=== PATIENT | female | born 1960 | race African-American/Black ===

== ENCOUNTER → 2018-06-25 | Outpatient (CLI) | payer MEDICARE ==
[~2018-06-25] MED LIST: AML5T PO; HCTZ25T PO; PANT40T PO; POTA1TAB61 PO
[2018-06-25 09:03] LABS: Basophils # (auto) 0.1 uL; Basophils % (auto) 1.4 % (0.0-2.0); Eosinophils # (auto) 0.2 uL; Eosinophils % (auto) 2.9 % (0.0-7.0); Hematocrit 35.3 % (36.0-46.0); Hemoglobin 11.5 g/dL (12.2-16.2); Lymphocytes # (auto) 3.2 uL; Lymphocytes % (auto) 52.3 % (10.0-50.0); Mean Corpuscular Hemoglobin 29.6 pg (28.0-32.0); Mean Corpuscular Hgb Conc. 32.5 g/dL (32.0-36.0); Mean Corpuscular Volume 90.9 fL (80.0-100.0); Monocytes # (auto) 0.5 uL; Monocytes % (auto) 8.2 % (0.0-12.0); Neutrophils # (auto) 2.1 uL; Neutrophils % (auto) 35.2 % (37.0-80.0); Platelet Count (auto) 193 10^3/uL (140-450); Red Blood Cells 3.88 10^6/uL (4.0-5.20); Red Cell Distribution Width 16.7 % (11.8-14.3); White Blood Cell 6.1 10^3/uL (4.4-10.8)
[2018-06-25 09:27] LABS: Cholesterol 187 mg/dL (< 200); HDL Cholesterol 72 mg/dL (40-59); LDL Cholesterol 109 mg/dL (< 100); Triglycerides 46 mg/dL (< 150)
== END | disposition home or self-care (01) ==
LOC: LAB 08:31
PROVIDERS: ATTEND Internal Medicine
DX: I10 Essential (primary) hypertension (principal); E78.5 Hyperlipidemia, unspecified
CPT/HCPCS: 36415; 80061; 85025

== ENCOUNTER → 2018-08-23 | Outpatient (CLI) | payer MEDICARE | END | disposition home or self-care (01) | LOC: LAB 08:10 | PROVIDERS: ATTEND Internal Medicine Gastroenterology | DX: R10.9 Unspecified abdominal pain (principal) | CPT/HCPCS: 82274 ==

== ENCOUNTER 2018-11-30 14:03 | Emergency (ER) | payer MEDICARE ==
[~2018-11-30] VITALS: Ht 175.3 cm; Wt 71.2 kg
[2018-11-30 14:53] VITALS: BP 136/84
[2018-11-30] MEDS ORDERED: OXYMETAZOLINE HCL 0.05 % NASAL SPRAY 15ML ONE (15:15)
== END 2018-11-30 15:29 | disposition home or self-care (01) ==
LOC: ER 14:03
DX: R04.0 Epistaxis (principal); I10 Essential (primary) hypertension; Z79.899 Other long term (current) drug therapy; Z90.710 Acquired absence of both cervix and uterus

== ENCOUNTER 2020-05-23 23:22 | Emergency (ER) | payer MEDICARE ==
[~2020-05-23] VITALS: Ht 175.3 cm; Wt 86.2 kg
[2020-05-23] MEDS ORDERED: OXYMETAZOLINE HCL 0.05 % NASAL SPRAY 15ML EACHNOSTRI ONE (23:45)
[2020-05-23 23:57] LABS: Basophils # (auto) 0.1 10 ^3/uL (0-0.2); Eosinophils # (auto) 0.2 10 ^3/uL (0-0.8); Eosinophils % (auto) 2.3 % (0.0-7.0); Hematocrit 40.4 % (36.0-46.0); Hemoglobin 12.7 g/dL (12.2-16.2); Lymphocytes % (auto) 53.5 % (10.0-50.0); Mean Corpuscular Hemoglobin 28.2 pg (28.0-32.0); Mean Corpuscular Hgb Conc. 31.4 g/dL (32.0-36.0); Monocytes # (auto) 0.5 10 ^3/uL (0-1.3); Monocytes % (auto) 6.1 % (0.0-12.0); Neutrophils # (auto) 2.8 10 ^3/uL (1.6-8.6); Neutrophils % (auto) 37.1 % (37.0-80.0); Nucleated Red Blood Cells % 0.1 %; Platelet Count (auto) 158 10^3/uL (140-450); Red Blood Cells 4.49 10^6/uL (4.0-5.20); Red Cell Distribution Width 19.1 % (11.8-14.3); White Blood Cell 7.5 10^3/uL (4.4-10.8)
[2020-05-24 00:23] LABS: INR 0.97 (0.9-1.15); Partial Thromboplastin Time 25.4 sec (23.0-31.2)
[2020-05-24 00:40] LABS: Potassium 3.1 mmol/L (3.5-5.1)
[2020-05-24 00:46] LABS: Albumin 3.7 g/dL (3.4-5.0); BUN/Creatinine Ratio 27.1; Calcium 9.8 mg/dL (8.5-10.1)
[2020-05-24 00:48] LABS: Bilirubin, Total 0.3 mg/dL (0.2-1.0); Total Protein 9.1 g/dL (6.4-8.2)
[2020-05-24 03:46] VITALS: BP 139/85
== END 2020-05-24 04:45 | disposition home or self-care (01) ==
LOC: ER 23:22
DX: R04.0 Epistaxis (principal); K74.60 Unspecified cirrhosis of liver; I10 Essential (primary) hypertension; Z79.899 Other long term (current) drug therapy
CPT/HCPCS: 36415; 80053; 85025; 85610; 85730

== ENCOUNTER 2020-05-29 11:35 | Emergency (ER) | payer MEDICARE ==
[~2020-05-29] VITALS: Ht 165.1 cm; Wt 68.0 kg
[2020-05-29] MEDS ORDERED: cloNIDine HCL 0.1 MG TAB PO ONE ×2 (11:45→12:15)
[2020-05-29 12:03] LABS: Basophils # (auto) 0.1 10 ^3/uL (0-0.2); Basophils % (auto) 1.6 % (0.0-2.0); Eosinophils # (auto) 0.1 10 ^3/uL (0-0.8); Eosinophils % (auto) 2.6 % (0.0-7.0); Hemoglobin 11.9 g/dL (12.2-16.2); Lymphocytes # (auto) 2.1 10 ^3/uL (0.4-5.4); Lymphocytes % (auto) 44.3 % (10.0-50.0); Mean Corpuscular Hgb Conc. 33.2 g/dL (32.0-36.0); Mean Corpuscular Volume 90.6 fL (80.0-100.0); Monocytes # (auto) 0.5 10 ^3/uL (0-1.3); Monocytes % (auto) 9.9 % (0.0-12.0); Neutrophils % (auto) 41.6 % (37.0-80.0); Nucleated Red Blood Cells % 0.1 %; Platelet Count (auto) 211 10^3/uL (140-450); Red Blood Cells 3.97 10^6/uL (4.0-5.20); Red Cell Distribution Width 18.7 % (11.8-14.3); White Blood Cell 4.7 10^3/uL (4.4-10.8)
[2020-05-29 12:20] LABS: INR 1.02 (0.9-1.15); Partial Thromboplastin Time 25.1 sec (23.0-31.2)
[2020-05-29 13:11] VITALS: BP 142/82
== END 2020-05-29 13:40 | disposition home or self-care (01) ==
LOC: EDBD 11:35 → ER 11:35
DX: R04.0 Epistaxis (principal); I16.0 Hypertensive urgency; I10 Essential (primary) hypertension; Z79.899 Other long term (current) drug therapy
CPT/HCPCS: 30901; 36415; 85025; 85610; 85730

== ENCOUNTER 2020-06-08 18:55 | Emergency (ER) | payer MEDICARE ==
[~2020-06-08] VITALS: Ht 175.3 cm; Wt 83.9 kg
[2020-06-08 19:34] LABS: Basophils # (auto) 0.2 10 ^3/uL (0-0.2); Basophils % (auto) 1.7 % (0.0-2.0); Eosinophils # (auto) 0.2 10 ^3/uL (0-0.8); Eosinophils % (auto) 1.7 % (0.0-7.0); Hemoglobin 11.6 g/dL (12.2-16.2); Lymphocytes # (auto) 2.9 10 ^3/uL (0.4-5.4); Lymphocytes % (auto) 32.8 % (10.0-50.0); Mean Corpuscular Hemoglobin 29.8 pg (28.0-32.0); Mean Corpuscular Volume 90.3 fL (80.0-100.0); Monocytes # (auto) 0.6 10 ^3/uL (0-1.3); Monocytes % (auto) 6.6 % (0.0-12.0); Neutrophils % (auto) 57.2 % (37.0-80.0); Nucleated Red Blood Cells % 0.2 %; Platelet Count (auto) 265 10^3/uL (140-450); Red Blood Cells 3.88 10^6/uL (4.0-5.20); White Blood Cell 8.8 10^3/uL (4.4-10.8)
[2020-06-08 19:43] LABS: INR 1.04 (0.9-1.15)
[2020-06-08 19:50] LABS: Albumin 3.7 g/dL (3.4-5.0); Calcium 9.8 mg/dL (8.5-10.1); Potassium 3.2 mmol/L (3.5-5.1)
[2020-06-08 19:54] LABS: BUN/Creatinine Ratio 11.8; Bilirubin, Total 0.3 mg/dL (0.2-1.0); Total Protein 8.3 g/dL (6.4-8.2)
[2020-06-08] MEDS ORDERED: POTASSIUM CHL 20 Meq TABLET PO ONE (21:00)
[2020-06-08] MEDS ORDERED: cloNIDine HCL 0.1 MG TAB PO ONE (21:15)
[2020-06-08 21:45] VITALS: BP 156/96
== END 2020-06-08 22:45 | disposition short-term general hospital (02) ==
LOC: ER 18:55
DX: R04.0 Epistaxis (principal); I10 Essential (primary) hypertension; E87.6 Hypokalemia; D64.9 Anemia, unspecified; Z90.710 Acquired absence of both cervix and uterus; Z79.899 Other long term (current) drug therapy
CPT/HCPCS: 30901; 36415; 80053; 85025; 85610

== ENCOUNTER 2020-06-10 12:56 | Emergency (ER) | payer MEDICARE ==
[~2020-06-10] VITALS: Ht 175.3 cm; Wt 82.1 kg
[2020-06-10] MEDS: cloNIDine HCL 0.1 MG TAB PO ONE ×2 (16:03→16:34)
[2020-06-10 16:35] LABS: Basophils # (auto) 0.1 10 ^3/uL (0-0.2); Basophils % (auto) 0.6 % (0.0-2.0); Eosinophils # (auto) 0 10 ^3/uL (0-0.8); Eosinophils % (auto) 0.1 % (0.0-7.0); Hematocrit 39.9 % (36.0-46.0); Lymphocytes # (auto) 2.7 10 ^3/uL (0.4-5.4); Lymphocytes % (auto) 16.4 % (10.0-50.0); Mean Corpuscular Hemoglobin 29.4 pg (28.0-32.0); Mean Corpuscular Hgb Conc. 32.6 g/dL (32.0-36.0); Mean Corpuscular Volume 90.2 fL (80.0-100.0); Monocytes # (auto) 1.2 10 ^3/uL (0-1.3); Monocytes % (auto) 7.2 % (0.0-12.0); Neutrophils # (auto) 12.6 10 ^3/uL (1.6-8.6); Neutrophils % (auto) 75.7 % (37.0-80.0); Platelet Count (auto) 286 10^3/uL (140-450); Red Blood Cells 4.42 10^6/uL (4.0-5.20); Red Cell Distribution Width 16.5 % (11.8-14.3); White Blood Cell 16.7 10^3/uL (4.4-10.8)
[2020-06-10 16:48] LABS: INR 1.07 (0.9-1.15); Partial Thromboplastin Time 27.9 sec (23.0-31.2)
[2020-06-10 19:55] VITALS: BP 150/92
[2020-06-10] MEDS ORDERED: ACETAMINOPHEN 325 MG TAB PO ONE (20:30)
== END 2020-06-10 21:06 | disposition short-term general hospital (02) ==
LOC: ER 12:56
DX: R04.0 Epistaxis (principal); I10 Essential (primary) hypertension; Z79.899 Other long term (current) drug therapy; Z90.710 Acquired absence of both cervix and uterus
CPT/HCPCS: 36415; 85025; 85610; 85730

== ENCOUNTER 2020-10-09 16:37 | Inpatient (IN) | payer MEDICARE ==
[~2020-10-09] VITALS: Ht 175.3 cm; Wt 77.6 kg
[~2020-10-09 16:37] MED LIST changes: -HCTZ25T PO; +HYDR25TA5 PO
[2020-10-09] MEDS ORDERED: SODIUM CHLORIDE 0.9% 1,000 ML IV ONE (17:15)
[2020-10-09] MEDS ORDERED: MORPHINE SULFATE 4 MG/ML SYR/VIAL IV ONE ×2 (17:15→22:30)
[2020-10-09] MEDS ORDERED: ONDANSETRON HCL 4 MG/2 ML VIAL IV ONE (17:15)
[2020-10-09] MEDS ORDERED: IOHEXOL 300 MG/ML 100ML BOTTLE IJ ONE (17:25)
[2020-10-09 19:01] LABS: Basophils # (auto) 0 10 ^3/uL (0-0.2); Basophils % (auto) 0.2 % (0.0-2.0); Eosinophils # (auto) 0 10 ^3/uL (0-0.8); Hematocrit 40.7 % (36.0-46.0); Hemoglobin 13.7 g/dL (12.2-16.2); Lymphocytes # (auto) 0.7 10 ^3/uL (0.4-5.4); Lymphocytes % (auto) 8.2 % (10.0-50.0); Mean Corpuscular Hemoglobin 31.6 pg (28.0-32.0); Mean Corpuscular Hgb Conc. 33.7 g/dL (32.0-36.0); Mean Corpuscular Volume 93.8 fL (80.0-100.0); Monocytes # (auto) 0.6 10 ^3/uL (0-1.3); Monocytes % (auto) 7.4 % (0.0-12.0); Neutrophils # (auto) 7.1 10 ^3/uL (1.6-8.6); Neutrophils % (auto) 84.2 % (37.0-80.0); Nucleated Red Blood Cells % 0.1 %; Platelet Count (auto) 168 10^3/uL (140-450); Red Blood Cells 4.34 10^6/uL (4.0-5.20); Red Cell Distribution Width 14.5 % (11.8-14.3); White Blood Cell 8.4 10^3/uL (4.4-10.8)
[2020-10-09 19:16] LABS: INR 1.03 (0.9-1.15); Partial Thromboplastin Time 22.2 sec (23.0-31.2)
[2020-10-09 19:19] LABS: Magnesium 1.9 mg/dL (1.6-2.6)
[2020-10-09 19:20] LABS: Albumin 4.1 g/dL (3.4-5.0); BUN/Creatinine Ratio 17.8; Calcium 10.3 mg/dL (8.5-10.1)
[2020-10-09 19:28] LABS: Bilirubin, Total 0.9 mg/dL (0.2-1.0); Total Protein 9.4 g/dL (6.4-8.2)
[2020-10-09 21:27] LABS: Urine Bacteria FEW /hpf (None Seen); Urine Blood Negative /uL (Negative); Urine Mucus FEW (None Seen); Urine Specific Gravity 1.026 (1.001-1.035); Urine WBC 3 /hpf (0 - 5)
[2020-10-09] MEDS ORDERED: POTASSIUM CHL 20MEQ/100ML 100 ML IV ONE (22:15)
[2020-10-09] MEDS ORDERED: D5W/SOD CHL 0.45% 1,000 ML IV ONE (22:30)
[2020-10-09] MEDS ORDERED: NITROGLYCERIN 0.4 MG SL TAB SL PRN (23:00)
[2020-10-09] MEDS: SODIUM CHLORIDE 0.9% 1,000 ML IV SCH (23:00)
[2020-10-09] MEDS ORDERED: MORPHINE SULF INJ 2 MG/ML SYRINGE 1ML IV PRN (23:00)
[2020-10-09] MEDS ORDERED: cefTRIAXone 1GM/50ML D5W 50 ML IV ONE (23:00)
[2020-10-10] MEDS ORDERED: SODIUM CHLORIDE 0.9% 500 ML IV ONE (00:45)
[2020-10-10 06:57] LABS: Basophils # (auto) 0 10 ^3/uL (0-0.2); Basophils % (auto) 0.2 % (0.0-2.0); Eosinophils # (auto) 0 10 ^3/uL (0-0.8); Eosinophils % (auto) 0.4 % (0.0-7.0); Hematocrit 36.1 % (36.0-46.0); Hemoglobin 11.9 g/dL (12.2-16.2); Lymphocytes # (auto) 0.8 10 ^3/uL (0.4-5.4); Lymphocytes % (auto) 13.8 % (10.0-50.0); Mean Corpuscular Hemoglobin 30.8 pg (28.0-32.0); Mean Corpuscular Hgb Conc. 33.1 g/dL (32.0-36.0); Mean Corpuscular Volume 92.9 fL (80.0-100.0); Monocytes # (auto) 0.6 10 ^3/uL (0-1.3); Neutrophils # (auto) 4.6 10 ^3/uL (1.6-8.6); Neutrophils % (auto) 75.6 % (37.0-80.0); Nucleated Red Blood Cells % 0.1 %; Platelet Count (auto) 141 10^3/uL (140-450); Red Blood Cells 3.88 10^6/uL (4.0-5.20); Red Cell Distribution Width 14.4 % (11.8-14.3); White Blood Cell 6.1 10^3/uL (4.4-10.8)
[2020-10-10 07:58] LABS: BUN/Creatinine Ratio 20.9; Bilirubin, Total 0.5 mg/dL (0.2-1.0); Total Protein 7.5 g/dL (6.4-8.2)
[2020-10-10] MEDS: SODIUM CHLORIDE 0.9% 1,000 ML IV SCH ×2 (08:03→21:51)
[2020-10-10] MEDS: cefTRIAXone 1GM/50ML D5W 50 ML IV SCH (08:03)
[2020-10-10] MEDS: MORPHINE SULFATE 4 MG/ML SYR/VIAL IV PRN ×2 (08:03→12:17)
[2020-10-10] MEDS: ONDANSETRON HCL 4 MG/2 ML VIAL IV PRN ×2 (08:03→23:13)
[2020-10-10 09:44] VITALS: BP 131/86
[2020-10-10] MEDS ORDERED: POTASSIUM CHL 20MEQ/100ML 100 ML IV SCH (13:15)
[2020-10-10] MEDS ORDERED: POTASSIUM EFFERVESENT TAB 25 MEQ PO ONE (13:45)
[2020-10-10 15:57] VITALS: BP 110/75
[2020-10-10] MEDS ORDERED: FOLI1TAB6 PO (18:45)
[2020-10-10] MEDS ORDERED: FERR325T20 PO (18:45)
[2020-10-10] MEDS ORDERED: AMLO-496 PO (18:45)
[2020-10-10] MEDS ORDERED: TRIA50TA2 PO (18:45)
[2020-10-10 22:00] VITALS: BP 113/76
[2020-10-11] MEDS: SODIUM CHLORIDE 0.9% 1,000 ML IV SCH ×2 (05:00→09:21)
[2020-10-11 05:04] VITALS: BP 115/71
[2020-10-11] MEDS: ONDANSETRON HCL 4 MG/2 ML VIAL IV PRN (06:50)
[2020-10-11 06:57] LABS: Basophils # (auto) 0 10 ^3/uL (0-0.2); Basophils % (auto) 0.3 % (0.0-2.0); Eosinophils # (auto) 0 10 ^3/uL (0-0.8); Eosinophils % (auto) 0.4 % (0.0-7.0); Hematocrit 30.5 % (36.0-46.0); Hemoglobin 10.3 g/dL (12.2-16.2); Lymphocytes # (auto) 1.4 10 ^3/uL (0.4-5.4); Lymphocytes % (auto) 17.9 % (10.0-50.0); Mean Corpuscular Hemoglobin 31.5 pg (28.0-32.0); Mean Corpuscular Hgb Conc. 33.7 g/dL (32.0-36.0); Mean Corpuscular Volume 93.5 fL (80.0-100.0); Monocytes % (auto) 13.8 % (0.0-12.0); Neutrophils # (auto) 5.1 10 ^3/uL (1.6-8.6); Neutrophils % (auto) 67.6 % (37.0-80.0); Nucleated Red Blood Cells % 0.1 %; Platelet Count (auto) 112 10^3/uL (140-450); Red Blood Cells 3.26 10^6/uL (4.0-5.20); Red Cell Distribution Width 14.4 % (11.8-14.3); White Blood Cell 7.6 10^3/uL (4.4-10.8)
[2020-10-11 07:08] LABS: Albumin 2.5 g/dL (3.4-5.0); Calcium 8.4 mg/dL (8.5-10.1); Potassium 3.1 mmol/L (3.5-5.1)
[2020-10-11 07:14] LABS: BUN/Creatinine Ratio 21.1; Bilirubin, Total 0.5 mg/dL (0.2-1.0); Total Protein 6.8 g/dL (6.4-8.2)
[2020-10-11 08:00] VITALS: BP 128/77
[2020-10-11] MEDS: cefTRIAXone 1GM/50ML D5W 50 ML IV SCH (09:20)
[2020-10-11] MEDS ORDERED: POTASSIUM CHL 20 Meq TABLET PO ONE (12:00)
[2020-10-11 16:00] VITALS: BP 121/79
[2020-10-11] MEDS: MORPHINE SULF INJ 2 MG/ML SYRINGE 1ML IV PRN ×2 (17:36→23:55)
[2020-10-11 21:24] VITALS: BP 123/84
[2020-10-11] MEDS: FAMOTIDINE (10MG/ML) 2ML VL IV SCH (21:32)
[2020-10-12] MEDS: SODIUM CHLORIDE 0.9% 1,000 ML IV SCH ×2 (01:00→11:07)
[2020-10-12] MEDS: MORPHINE SULF INJ 2 MG/ML SYRINGE 1ML IV PRN ×3 (04:57→21:10)
[2020-10-12 05:06] VITALS: BP 136/80
[2020-10-12 06:47] LABS: Basophils # (auto) 0 10 ^3/uL (0-0.2); Basophils % (auto) 0.4 % (0.0-2.0); Eosinophils # (auto) 0.1 10 ^3/uL (0-0.8); Eosinophils % (auto) 0.7 % (0.0-7.0); Lymphocytes # (auto) 1.4 10 ^3/uL (0.4-5.4); Lymphocytes % (auto) 18.9 % (10.0-50.0); Mean Corpuscular Hemoglobin 31.4 pg (28.0-32.0); Mean Corpuscular Hgb Conc. 33.4 g/dL (32.0-36.0); Monocytes # (auto) 1.1 10 ^3/uL (0-1.3); Monocytes % (auto) 14.5 % (0.0-12.0); Neutrophils % (auto) 65.5 % (37.0-80.0); Platelet Count (auto) 125 10^3/uL (140-450); Red Blood Cells 3.19 10^6/uL (4.0-5.20); Red Cell Distribution Width 14.6 % (11.8-14.3); White Blood Cell 7.6 10^3/uL (4.4-10.8)
[2020-10-12 07:12] LABS: BUN/Creatinine Ratio 14.5; Calcium 8.3 mg/dL (8.5-10.1); Potassium 3.4 mmol/L (3.5-5.1)
[2020-10-12 07:50] VITALS: BP 132/83
[2020-10-12] MEDS: cefTRIAXone 1GM/50ML D5W 50 ML IV SCH (09:04)
[2020-10-12] MEDS: FAMOTIDINE (10MG/ML) 2ML VL IV SCH ×2 (11:05→21:10)
[2020-10-12] MEDS ORDERED: POTASSIUM CHL 20 Meq TABLET PO ONE (12:30)
[2020-10-12 16:00] VITALS: BP 123/78
[2020-10-12 22:00] VITALS: BP 123/80
[2020-10-13] MEDS: MORPHINE SULF INJ 2 MG/ML SYRINGE 1ML IV PRN ×3 (02:50→21:53)
[2020-10-13 05:00] VITALS: BP 141/83
[2020-10-13 06:35] LABS: Basophils # (auto) 0 10 ^3/uL (0-0.2); Basophils % (auto) 0.4 % (0.0-2.0); Eosinophils # (auto) 0.1 10 ^3/uL (0-0.8); Eosinophils % (auto) 0.8 % (0.0-7.0); Hematocrit 28.4 % (36.0-46.0); Hemoglobin 9.6 g/dL (12.2-16.2); Lymphocytes # (auto) 1.7 10 ^3/uL (0.4-5.4); Lymphocytes % (auto) 21.5 % (10.0-50.0); Mean Corpuscular Hemoglobin 31.6 pg (28.0-32.0); Mean Corpuscular Hgb Conc. 33.7 g/dL (32.0-36.0); Mean Corpuscular Volume 93.9 fL (80.0-100.0); Monocytes # (auto) 1.3 10 ^3/uL (0-1.3); Monocytes % (auto) 16.6 % (0.0-12.0); Neutrophils # (auto) 4.7 10 ^3/uL (1.6-8.6); Neutrophils % (auto) 60.7 % (37.0-80.0); Platelet Count (auto) 145 10^3/uL (140-450); Red Blood Cells 3.02 10^6/uL (4.0-5.20); Red Cell Distribution Width 14.6 % (11.8-14.3); White Blood Cell 7.7 10^3/uL (4.4-10.8)
[2020-10-13 06:52] LABS: Potassium 3.6 mmol/L (3.5-5.1)
[2020-10-13 07:00] LABS: BUN/Creatinine Ratio 12.7; Calcium 8.4 mg/dL (8.5-10.1)
[2020-10-13 08:00] VITALS: BP_SYST 140; BP_SYST 156; BP_DIAS 85; BP_DIAS 93
[2020-10-13] MEDS: FAMOTIDINE (10MG/ML) 2ML VL IV SCH ×2 (09:28→21:53)
[2020-10-13] MEDS: cefTRIAXone 1GM/50ML D5W 50 ML IV SCH (09:28)
[2020-10-13 16:00] VITALS: BP 146/88
[2020-10-13 22:00] VITALS: BP 148/88
[2020-10-14] MEDS: MORPHINE SULF INJ 2 MG/ML SYRINGE 1ML IV PRN ×2 (03:42→09:35)
[2020-10-14 05:00] VITALS: BP 134/80
[2020-10-14 07:01] LABS: Hematocrit 27.8 % (36.0-46.0); Hemoglobin 9.6 g/dL (12.2-16.2); Mean Corpuscular Hemoglobin 31.7 pg (28.0-32.0); Mean Corpuscular Hgb Conc. 34.4 g/dL (32.0-36.0); Mean Corpuscular Volume 92.3 fL (80.0-100.0); Platelet Count (auto) 161 10^3/uL (140-450); Red Blood Cells 3.01 10^6/uL (4.0-5.20); Red Cell Distribution Width 14.3 % (11.8-14.3); White Blood Cell 7.7 10^3/uL (4.4-10.8)
[2020-10-14 07:09] LABS: Band Neutrophils % (manual) 0; Basophils % (manual) 0 (0.0-2.0); Blast Cells 0; Eosinophils % (manual) 0 (0-7); Metamyelocytes % 0; Myelocytes % 0; Promyelocytes % 0; Reactive Lymphocytes 0
[2020-10-14 07:19] LABS: BUN/Creatinine Ratio 9.1; Calcium 9.1 mg/dL (8.5-10.1); Potassium 3.2 mmol/L (3.5-5.1)
[2020-10-14 08:00] VITALS: BP 145/84
[2020-10-14 08:50] LABS: Lymphocytes % (manual) 25 (10.0-50.0); Monocytes % (manual) 12 (0-12)
[2020-10-14] MEDS: FAMOTIDINE (10MG/ML) 2ML VL IV SCH ×2 (09:34→22:41)
[2020-10-14 16:00] VITALS: BP 157/88
[2020-10-14 22:02] VITALS: BP 160/96
[2020-10-15] VITALS: BP 160/96
[2020-10-15 06:04] VITALS: BP 151/86
[2020-10-15 07:23] LABS: Hematocrit 28.2 % (36.0-46.0); Hemoglobin 9.8 g/dL (12.2-16.2); Mean Corpuscular Hemoglobin 31.9 pg (28.0-32.0); Mean Corpuscular Hgb Conc. 34.7 g/dL (32.0-36.0); Platelet Count (auto) 181 10^3/uL (140-450); Red Blood Cells 3.06 10^6/uL (4.0-5.20); Red Cell Distribution Width 14.3 % (11.8-14.3); White Blood Cell 7.4 10^3/uL (4.4-10.8)
[2020-10-15 07:42] LABS: Basophils % (manual) 0 (0.0-2.0); Blast Cells 0; Eosinophils % (manual) 0 (0-7); Myelocytes % 0; Promyelocytes % 0; Reactive Lymphocytes 0
[2020-10-15 07:59] LABS: BUN/Creatinine Ratio 7.9
[2020-10-15 08:00] VITALS: BP 150/88
[2020-10-15 08:04] LABS: Potassium 2.9 mmol/L (3.5-5.1)
[2020-10-15 09:02] LABS: Band Neutrophils % (manual) 1; Lymphocytes % (manual) 23 (10.0-50.0); Metamyelocytes % 1; Monocytes % (manual) 17 (0-12)
[2020-10-15] MEDS: MORPHINE SULF INJ 2 MG/ML SYRINGE 1ML IV PRN (11:04)
[2020-10-15] MEDS: FAMOTIDINE (10MG/ML) 2ML VL IV SCH ×2 (11:04→21:03)
[2020-10-15] MEDS ORDERED: POTASSIUM CHL 20 Meq TABLET PO ONE (13:15)
[2020-10-15 16:00] VITALS: BP 151/84
[2020-10-16] VITALS: BP 148/86
[2020-10-16 05:49] VITALS: BP 152/87
[2020-10-16 06:09] LABS: Basophils # (auto) 0.1 10 ^3/uL (0-0.2); Basophils % (auto) 0.9 % (0.0-2.0); Eosinophils # (auto) 0.1 10 ^3/uL (0-0.8); Eosinophils % (auto) 1.8 % (0.0-7.0); Hematocrit 30.2 % (36.0-46.0); Hemoglobin 10.2 g/dL (12.2-16.2); Lymphocytes # (auto) 2.5 10 ^3/uL (0.4-5.4); Lymphocytes % (auto) 31.5 % (10.0-50.0); Mean Corpuscular Hemoglobin 31.2 pg (28.0-32.0); Mean Corpuscular Hgb Conc. 33.8 g/dL (32.0-36.0); Mean Corpuscular Volume 92.3 fL (80.0-100.0); Monocytes # (auto) 1.3 10 ^3/uL (0-1.3); Monocytes % (auto) 16.1 % (0.0-12.0); Neutrophils % (auto) 49.7 % (37.0-80.0); Platelet Count (auto) 234 10^3/uL (140-450); Red Blood Cells 3.27 10^6/uL (4.0-5.20); Red Cell Distribution Width 14.4 % (11.8-14.3)
[2020-10-16 06:36] LABS: Potassium 3.3 mmol/L (3.5-5.1)
[2020-10-16 06:47] LABS: BUN/Creatinine Ratio 8.5; Calcium 9.4 mg/dL (8.5-10.1)
[2020-10-16 07:43] VITALS: BP 153/89
[2020-10-16] MEDS: FAMOTIDINE (10MG/ML) 2ML VL IV SCH ×2 (10:00→20:49)
[2020-10-16] MEDS ORDERED: POTASSIUM EFFERVESENT TAB 25 MEQ GT ONE (11:15)
[2020-10-16 13:00] VITALS: BP 151/90
[2020-10-16 13:46] LABS: INR 1.13 (0.9-1.15)
[2020-10-16] MEDS ORDERED: POTASSIUM EFFERVESENT TAB 25 MEQ PO ONE (14:45)
[2020-10-16] MEDS ORDERED: LIDOCAINE 1% (LOCAL ANESTH.) PF 5ml SDV ID ONE (15:30)
[2020-10-16 16:00] VITALS: BP 163/98
[2020-10-16] MEDS ORDERED: MET50T PO (19:36)
[2020-10-16] MEDS: SODIUM CHLOR 0.9% PF (SALINE LOCK) 10ML VIAL/SYR IV SCH (20:49)
[2020-10-16 22:24] VITALS: BP 146/95
[2020-10-17] VITALS: BP 159/94
[2020-10-17 05:14] VITALS: BP 159/94
[2020-10-17 08:00] VITALS: BP 155/92
[2020-10-17] MEDS: SODIUM CHLOR 0.9% PF (SALINE LOCK) 10ML VIAL/SYR IV SCH ×2 (09:44→22:10)
[2020-10-17] MEDS: FAMOTIDINE (10MG/ML) 2ML VL IV SCH ×2 (09:44→22:10)
[2020-10-17] MEDS ORDERED: POTA1TAB61 PO (11:49)
[2020-10-17] MEDS ORDERED: AML5T PO (11:49)
[2020-10-17] MEDS ORDERED: HYDR25TA5 PO (11:49)
[2020-10-17] MEDS ORDERED: PANT40TA2 PO (11:49)
[2020-10-17] MEDS: POTASSIUM CHL 20MEQ/100ML 100 ML IV SCH ×2 (12:26→14:22)
[2020-10-17 16:00] VITALS: BP 162/95
[2020-10-17] MEDS ORDERED: TPN PER PHARMACY 0 ML IV SCH (20:15)
[2020-10-17] MEDS ORDERED: AMINO ACID INFUSION IN D5W 2,000 ML IV NR (21:00)
[2020-10-17 22:00] VITALS: BP 158/94
[2020-10-17] MEDS ORDERED: DEXTROSE (50%) 50ML SYRG IV SCH (22:45)
[2020-10-18] MEDS: ACCU-CHEK COMFORT CURVE STRIP VI SCH ×4 (00:20→18:00)
[2020-10-18 05:00] VITALS: BP 145/85
[2020-10-18] MEDS: InsuLIN REG 1unit/0.01ml Soln (100units/ml) SC SCH ×4 (06:00→18:00)
[2020-10-18 07:12] LABS: Basophils # (auto) 0.1 10 ^3/uL (0-0.2); Eosinophils # (auto) 0.1 10 ^3/uL (0-0.8); Eosinophils % (auto) 1.4 % (0.0-7.0); Hematocrit 29.6 % (36.0-46.0); Hemoglobin 9.9 g/dL (12.2-16.2); Lymphocytes # (auto) 2.5 10 ^3/uL (0.4-5.4); Lymphocytes % (auto) 29.2 % (10.0-50.0); Mean Corpuscular Hemoglobin 30.9 pg (28.0-32.0); Mean Corpuscular Hgb Conc. 33.5 g/dL (32.0-36.0); Mean Corpuscular Volume 92.3 fL (80.0-100.0); Monocytes # (auto) 0.9 10 ^3/uL (0-1.3); Monocytes % (auto) 10.1 % (0.0-12.0); Neutrophils % (auto) 58.3 % (37.0-80.0); Platelet Count (auto) 264 10^3/uL (140-450); Red Cell Distribution Width 14.3 % (11.8-14.3); White Blood Cell 8.6 10^3/uL (4.4-10.8)
[2020-10-18 07:23] LABS: Albumin 2.3 g/dL (3.4-5.0); Calcium 8.9 mg/dL (8.5-10.1); Magnesium 1.3 mg/dL (1.6-2.6); Potassium 3.2 mmol/L (3.5-5.1)
[2020-10-18 07:29] LABS: BUN/Creatinine Ratio 16.9; Bilirubin, Total 0.5 mg/dL (0.2-1.0); Phosphorus 3.8 mg/dL (2.5-4.90); Total Protein 7.2 g/dL (6.4-8.2)
[2020-10-18 08:00] VITALS: BP 151/87
[2020-10-18] MEDS: SODIUM CHLOR 0.9% PF (SALINE LOCK) 10ML VIAL/SYR IV SCH ×2 (10:00→21:02)
[2020-10-18] MEDS ORDERED: POTASSIUM CHL 20MEQ/100ML 100 ML IV SCH ×2 (10:00→10:45)
[2020-10-18] MEDS: FAMOTIDINE (10MG/ML) 2ML VL IV SCH ×2 (10:20→21:02)
[2020-10-18] MEDS: POTASSIUM CHL 20MEQ/100ML 100 ML IV SCH ×3 (12:32→16:26)
[2020-10-18 13:00] VITALS: BP 153/93
[2020-10-18] MEDS: MAGNESIUM SULFATE 1GM/100ML 100 ML IV SCH ×2 (14:23→15:00)
[2020-10-18 16:00] VITALS: BP 141/88
[2020-10-18] MEDS ORDERED: POTASSIUM CHLORIDE IV NR ×7 (20:00)
[2020-10-18] MEDS ORDERED: [UNRECOGNIZED DRUG - OTHER] IV NR ×7 (20:00)
[2020-10-18] MEDS ORDERED: FAT EMULSION IV NR ×7 (20:00)
[2020-10-18] MEDS ORDERED: SODIUM CHLORIDE IV NR ×7 (20:00)
[2020-10-19] VITALS (7 sets, daily range): BP systolic 117–151; BP diastolic 62–94
[2020-10-19] MEDS: ACCU-CHEK COMFORT CURVE STRIP VI SCH ×3 (06:14→12:06)
[2020-10-19] MEDS: InsuLIN REG 1unit/0.01ml Soln (100units/ml) SC SCH ×3 (06:17→12:12)
[2020-10-19 07:05] LABS: Basophils # (auto) 0.1 10 ^3/uL (0-0.2); Basophils % (auto) 0.8 % (0.0-2.0); Eosinophils # (auto) 0.2 10 ^3/uL (0-0.8); Eosinophils % (auto) 2.1 % (0.0-7.0); Hematocrit 29.5 % (36.0-46.0); Hemoglobin 9.9 g/dL (12.2-16.2); Lymphocytes % (auto) 24.5 % (10.0-50.0); Mean Corpuscular Hemoglobin 30.9 pg (28.0-32.0); Mean Corpuscular Hgb Conc. 33.7 g/dL (32.0-36.0); Mean Corpuscular Volume 91.8 fL (80.0-100.0); Monocytes # (auto) 0.7 10 ^3/uL (0-1.3); Monocytes % (auto) 8.8 % (0.0-12.0); Neutrophils # (auto) 5.2 10 ^3/uL (1.6-8.6); Neutrophils % (auto) 63.8 % (37.0-80.0); Nucleated Red Blood Cells % 0.1 %; Platelet Count (auto) 274 10^3/uL (140-450); Red Blood Cells 3.22 10^6/uL (4.0-5.20); Red Cell Distribution Width 14.4 % (11.8-14.3); White Blood Cell 8.2 10^3/uL (4.4-10.8)
[2020-10-19 07:23] LABS: Albumin 2.3 g/dL (3.4-5.0); Calcium 9.1 mg/dL (8.5-10.1); Magnesium 2.2 mg/dL (1.6-2.6); Potassium 3.8 mmol/L (3.5-5.1)
[2020-10-19 07:26] LABS: BUN/Creatinine Ratio 16.3; Bilirubin, Total 0.3 mg/dL (0.2-1.0); Phosphorus 2.9 mg/dL (2.5-4.90)
[2020-10-19] MEDS: FAMOTIDINE (10MG/ML) 2ML VL IV SCH (10:31)
[2020-10-19] MEDS: SODIUM CHLOR 0.9% PF (SALINE LOCK) 10ML VIAL/SYR IV SCH (10:31)
[2020-10-19] MEDS ORDERED: SODIUM CHLORIDE IV NR ×10 (20:00)
[2020-10-19] MEDS ORDERED: FAT EMULSION IV NR ×10 (20:00)
[2020-10-19] MEDS ORDERED: [UNRECOGNIZED DRUG - OTHER] IV NR ×10 (20:00)
[2020-10-19] MEDS ORDERED: POTASSIUM CHLORIDE IV NR ×10 (20:00)
== END 2020-10-19 16:00 | DRG 438 ==
LOC: ER 16:37 → TELE 16:38 → TELE-EAST 10-10 09:35
PROVIDERS: ADMIT Nurse Practitioner; ATTEND Internal Medicine Pulmonary Disease
PROC: 02H633Z Insertion of Infusion Device into Right Atrium, Percutaneous Approach (ICD-10-PCS; principal; 2020-10-16)
PROC: 3E0436Z Introduction of Nutritional Substance into Central Vein, Percutaneous Approach (ICD-10-PCS; 2020-10-18)
DX: K85.80 Other acute pancreatitis without necrosis or infection (principal); N17.0 Acute kidney failure with tubular necrosis; H90.3 Sensorineural hearing loss, bilateral; E87.6 Hypokalemia; I10 Essential (primary) hypertension; Z20.822 Contact with and (suspected) exposure to COVID-19; Z82.49 Family history of ischemic heart disease and other diseases of the circulatory system; Z90.710 Acquired absence of both cervix and uterus
CPT/HCPCS: 36415; 36569; 71045; 74176; 74181; 76705; 80048; 80053; 81001; 82150; 82962; 83605; 83690; 83735; 83880; 84100; 84478; 84484; 85007; 85025; 85027; 85610; 85730; 86301; 87426; 93005; 96361; 96365; 96375; 97110; 97116; 97163; 97530; G0378; J0696; J1815; J2405; J3480; J3490; J7131

== ENCOUNTER 2021-09-27 07:26 | Inpatient (IN) | payer MEDICARE ==
[~2021-09-27] VITALS: Ht 175.3 cm; Wt 84.0 kg
[~2021-09-27 07:26] MED LIST changes: -PANT40T PO; +PANT40TA2 PO
[2021-09-27 09:39] LABS: Basophils # (auto) 0.1 10 ^3/uL (0-0.2); Basophils % (auto) 1.8 % (0.0-2.0); Eosinophils # (auto) 0.1 10 ^3/uL (0-0.8); Eosinophils % (auto) 0.9 % (0.0-7.0); Hematocrit 39.2 % (36.0-46.0); Hemoglobin 13.3 g/dL (12.2-16.2); Lymphocytes # (auto) 1.3 10 ^3/uL (0.4-5.4); Lymphocytes % (auto) 23.9 % (10.0-50.0); Mean Corpuscular Hemoglobin 31.1 pg (28.0-32.0); Mean Corpuscular Hgb Conc. 33.8 g/dL (32.0-36.0); Monocytes # (auto) 0.6 10 ^3/uL (0-1.3); Monocytes % (auto) 10.7 % (0.0-12.0); Neutrophils # (auto) 3.4 10 ^3/uL (1.6-8.6); Neutrophils % (auto) 62.7 % (37.0-80.0); Nucleated Red Blood Cells % 0.3 %; Red Blood Cells 4.26 10^6/uL (4.0-5.20); White Blood Cell 5.4 10^3/uL (4.4-10.8)
[2021-09-27 10:03] LABS: Albumin 4.2 g/dL (3.4-5.0); Calcium 9.8 mg/dL (8.5-10.1); Potassium 3.5 mmol/L (3.5-5.1)
[2021-09-27 10:22] LABS: BUN/Creatinine Ratio 16.4; Bilirubin, Total 0.7 mg/dL (0.2-1.0); Total Protein 9.5 g/dL (6.4-8.2)
[2021-09-27] MEDS ORDERED: DexAMETHasone SOD PHOS 10MG/1ML VIAL INJ IV ONE (14:00)
[2021-09-27] MEDS ORDERED: NITROGLYCERIN 0.4 MG SL TAB SL PRN (17:45)
[2021-09-27] MEDS ORDERED: MORPHINE SULFATE INJECTION 2 MG/ML SYRG IV PRN ×2 (17:45→18:00)
[2021-09-27] MEDS ORDERED: hydrALAZINE HCL 20 MG/ML VL IV PRN (17:45)
[2021-09-27] MEDS ORDERED: IPRATROPIUM BROM 0.5 MG/2.5ML INH SOL NEB PRN (17:45)
[2021-09-27] MEDS ORDERED: ACETAMINOPHEN 500 MG TAB PO PRN (17:45)
[2021-09-27] MEDS ORDERED: SODIUM CHLORIDE 0.9% 1,000 ML IV ONE (17:45)
[2021-09-27] MEDS ORDERED: REMDESIVIR PER PHARMACY 0 ML IV SCH (17:45)
[2021-09-27] MEDS ORDERED: ONDANSETRON HCL 4 MG/2 ML VIAL IV PRN (18:00)
[2021-09-27] MEDS ORDERED: DOCUSATE CALCIUM 240 MG CAP PO PRN (18:00)
[2021-09-27] MEDS ORDERED: PROMETHAZINE-DM 5 ML ORAL SYRUP PO PRN (18:15)
[2021-09-27 19:06] LABS: Magnesium 1.7 mg/dL (1.6-2.6)
[2021-09-27 19:15] LABS: CRP High Sensitivity 2.24 mg/dL (< 0.3)
[2021-09-27 20:35] LABS: Urine Bacteria NONE SEEN /hpf (None Seen); Urine Blood TRACE /uL (Negative); Urine Specific Gravity 1.013 (1.001-1.035); Urine WBC <1 /hpf (0 - 5)
[2021-09-27] MEDS ORDERED: BUDESONIDE (INHALATION) 0.5 MG/2 ML NEB NEB SCH (22:00)
[2021-09-27] MEDS: BUDESONIDE (INHALATION) 180 MCG IH IN SCH (22:00)
[2021-09-27] MEDS: ENOXAPARIN SOD 40 MG/0.4 ML SYRINGE SC SCH (22:30)
[2021-09-28 05:00] VITALS: BP 138/84
[2021-09-28 06:03] LABS: Basophils # (auto) 0 10 ^3/uL (0-0.2); Basophils % (auto) 0.5 % (0.0-2.0); Eosinophils # (auto) 0 10 ^3/uL (0-0.8); Hematocrit 36.2 % (36.0-46.0); Hemoglobin 12.1 g/dL (12.2-16.2); Lymphocytes # (auto) 0.6 10 ^3/uL (0.4-5.4); Mean Corpuscular Hemoglobin 31.1 pg (28.0-32.0); Mean Corpuscular Hgb Conc. 33.4 g/dL (32.0-36.0); Mean Corpuscular Volume 92.8 fL (80.0-100.0); Monocytes # (auto) 0.1 10 ^3/uL (0-1.3); Monocytes % (auto) 2.8 % (0.0-12.0); Neutrophils # (auto) 3.1 10 ^3/uL (1.6-8.6); Neutrophils % (auto) 81.7 % (37.0-80.0); Nucleated Red Blood Cells % 0.1 %; Red Cell Distribution Width 16.3 % (11.8-14.3); White Blood Cell 3.7 10^3/uL (4.4-10.8)
[2021-09-28 06:19] LABS: Albumin 3.3 g/dL (3.4-5.0); Calcium 9.6 mg/dL (8.5-10.1); Potassium 3.7 mmol/L (3.5-5.1)
[2021-09-28 06:21] LABS: BUN/Creatinine Ratio 16.7
[2021-09-28 06:23] LABS: Bilirubin, Total 0.8 mg/dL (0.2-1.0); Total Protein 8.2 g/dL (6.4-8.2)
[2021-09-28 06:29] LABS: Thyroid Stimulating Hormone 0.45 uIU/mL (0.358-3.74)
[2021-09-28 09:00] VITALS: BP 133/93
[2021-09-28] MEDS: ZINC SULFATE 220mg CAP or TAB PO SCH (09:56)
[2021-09-28] MEDS: PANTOPRAZOLE 40 MG TAB PO SCH (09:56)
[2021-09-28] MEDS: DexAMETHasone SOD PHOS 10MG/1ML VIAL INJ IV SCH (09:56)
[2021-09-28] MEDS: ASCORBIC ACID 1,000 MG TAB PO SCH (09:56)
[2021-09-28] MEDS: cefTRIAXone 1GM/50ML D5W 50 ML IV SCH (09:56)
[2021-09-28] MEDS: CHOLECALCIFEROL (VITD3) 2,000 UNIT CAP/TAB PO SCH (09:56)
[2021-09-28] MEDS: ENOXAPARIN SOD 40 MG/0.4 ML SYRINGE SC SCH ×2 (09:57→22:07)
[2021-09-28] MEDS: BUDESONIDE (INHALATION) 180 MCG IH IN SCH ×2 (10:00→19:50)
[2021-09-28 13:00] VITALS: BP 132/88
[2021-09-28 17:00] VITALS: BP 131/80
[2021-09-28] MEDS: ALBUTEROL SULF HFA 90MCG INH 200DOSE IN PRN (19:50)
[2021-09-28 20:00] VITALS: BP 123/77
[2021-09-28] MEDS ORDERED: REMDESIVIR 200 MG in NS 210ml LOADING DOSE ADULT IV ONE (20:00)
[2021-09-28 22:00] VITALS: BP 123/77
[2021-09-29 05:00] VITALS: BP 127/76
[2021-09-29 06:58] LABS: Potassium 3.6 mmol/L (3.5-5.1)
[2021-09-29 07:02] LABS: Albumin 3.3 g/dL (3.4-5.0); BUN/Creatinine Ratio 19.6; Calcium 9.8 mg/dL (8.5-10.1)
[2021-09-29 07:12] LABS: Bilirubin, Total 0.5 mg/dL (0.2-1.0); Total Protein 8.3 g/dL (6.4-8.2)
[2021-09-29] MEDS: BUDESONIDE (INHALATION) 180 MCG IH IN SCH ×2 (07:44→20:44)
[2021-09-29] MEDS: ALBUTEROL SULF HFA 90MCG INH 200DOSE IN PRN ×2 (07:44→20:44)
[2021-09-29 09:00] VITALS: BP 130/79
[2021-09-29] MEDS: DexAMETHasone SOD PHOS 10MG/1ML VIAL INJ IV SCH (10:07)
[2021-09-29] MEDS: cefTRIAXone 1GM/50ML D5W 50 ML IV SCH (10:07)
[2021-09-29] MEDS: CHOLECALCIFEROL (VITD3) 2,000 UNIT CAP/TAB PO SCH (10:07)
[2021-09-29] MEDS: ZINC SULFATE 220mg CAP or TAB PO SCH (10:07)
[2021-09-29] MEDS: ASCORBIC ACID 1,000 MG TAB PO SCH (10:07)
[2021-09-29] MEDS: PANTOPRAZOLE 40 MG TAB PO SCH (10:07)
[2021-09-29] MEDS: ENOXAPARIN SOD 40 MG/0.4 ML SYRINGE SC SCH ×2 (10:08→22:20)
[2021-09-29 13:00] VITALS: BP 141/87
[2021-09-29] MEDS ORDERED: REMDESIVIR 100mg 100 MG in SODIUM CHL 0.9% 230 ML IV SCH (15:00)
[2021-09-29 20:00] VITALS: BP 122/74
[2021-09-29 22:00] VITALS: BP 122/74
[2021-09-30 05:00] VITALS: BP 132/82
[2021-09-30 08:34] VITALS: BP 152/88
[2021-09-30] MEDS: DexAMETHasone SOD PHOS 10MG/1ML VIAL INJ IV SCH (09:34)
[2021-09-30] MEDS: cefTRIAXone 1GM/50ML D5W 50 ML IV SCH (09:34)
[2021-09-30] MEDS: ZINC SULFATE 220mg CAP or TAB PO SCH (09:35)
[2021-09-30] MEDS: PANTOPRAZOLE 40 MG TAB PO SCH (09:35)
[2021-09-30] MEDS: CHOLECALCIFEROL (VITD3) 2,000 UNIT CAP/TAB PO SCH (09:35)
[2021-09-30] MEDS: ENOXAPARIN SOD 40 MG/0.4 ML SYRINGE SC SCH (09:35)
[2021-09-30] MEDS: ASCORBIC ACID 1,000 MG TAB PO SCH (09:35)
[2021-09-30] MEDS: BUDESONIDE (INHALATION) 180 MCG IH IN SCH ×2 (10:00→17:53)
[2021-09-30] MEDS: ALBUTEROL SULF HFA 90MCG INH 200DOSE IN PRN ×2 (10:53→17:53)
[2021-09-30] MEDS ORDERED: AZITTAB PO (12:44)
[2021-09-30] MEDS ORDERED: METH4PAK PO (12:44)
[2021-09-30] MEDS ORDERED: AZITHROMYCIN 250 MG TAB PO ONE (12:45)
[2021-09-30 16:19] VITALS: BP 154/84
[2021-10-01] MEDS ORDERED: AZITHROMYCIN 500MG/ 250ML 250 ML IV SCH (10:00)
[2021-10-01] MEDS ORDERED: AZITHROMYCIN 250 MG TAB PO SCH (10:00)
== END 2021-09-30 18:41 | disposition home or self-care (01) | DRG 177 ==
LOC: ER 07:26 → TELE 17:41 → TELE-EAST 23:29
PROVIDERS: ADMIT Family Medicine; ATTEND Internal Medicine
PROC: XW033E5 Introduction of Remdesivir Anti-infective into Peripheral Vein, Percutaneous Approach, New Technology Group 5 (ICD-10-PCS; principal; 2021-09-28)
DX: U07.1 COVID-19 (principal); J12.82 Pneumonia due to coronavirus disease 2019; E86.0 Dehydration; I10 Essential (primary) hypertension; J40 Bronchitis, not specified as acute or chronic; J98.01 Acute bronchospasm; R09.02 Hypoxemia; H91.90 Unspecified hearing loss, unspecified ear; M79.604 Pain in right leg; R06.03 Acute respiratory distress; R74.01 Elevation of levels of liver transaminase levels; Z23 Encounter for immunization; Z82.49 Family history of ischemic heart disease and other diseases of the circulatory system; Z90.710 Acquired absence of both cervix and uterus
CPT/HCPCS: 36415; 71045; 80053; 81001; 82306; 82728; 83605; 83615; 83735; 84443; 84484; 85025; 85379; 86141; 87040; 87426; 87804; 93005; 93971; 94640; 96360; 96372; G0378; J0696; J1100

== ENCOUNTER 2022-08-19 14:52 | Emergency (ER) | payer MEDICARE ==
[~2022-08-19] VITALS: Ht 175.3 cm; Wt 68.2 kg
[~2022-08-19 14:52] MED LIST changes: +AZITTAB PO; +METH4PAK PO
[2022-08-19 16:10] VITALS: BP 103/49
== END 2022-08-19 20:55 | disposition home or self-care (01) ==
LOC: ER 14:52
DX: I89.0 Lymphedema, not elsewhere classified (principal); I10 Essential (primary) hypertension; Z90.710 Acquired absence of both cervix and uterus
CPT/HCPCS: 93005; 93971

== ENCOUNTER 2022-09-05 18:31 | Inpatient (IN) | payer MEDICARE ==
[~2022-09-05] VITALS: Ht 172.7 cm; Wt 74.5 kg
[2022-09-05] MEDS ORDERED: SODIUM CHLORIDE 0.9% 500 ML IV ONE (19:15)
[2022-09-05 19:44] LABS: Eosinophils # (auto) 0.1 10 ^3/uL (0-0.8); Monocytes # (auto) 1.6 10 ^3/uL (0-1.3); Red Cell Distribution Width 16.8 % (11.8-14.3); White Blood Cell 23.1 10^3/uL (4.4-10.8)
[2022-09-05 19:46] LABS: Basophils # (auto) 0.2 10 ^3/uL (0-0.2); Basophils % (auto) 0.8 % (0.0-2.0); Eosinophils % (auto) 0.4 % (0.0-7.0); Hematocrit 18.6 % (36.0-46.0); Lymphocytes # (auto) 1.9 10 ^3/uL (0.4-5.4); Lymphocytes % (auto) 8.3 % (10.0-50.0); Mean Corpuscular Hemoglobin 29.6 pg (28.0-32.0); Mean Corpuscular Hgb Conc. 31.8 g/dL (32.0-36.0); Monocytes % (auto) 7.1 % (0.0-12.0); Neutrophils # (auto) 19.3 10 ^3/uL (1.6-8.6); Neutrophils % (auto) 83.4 % (37.0-80.0); Nucleated Red Blood Cells % 0.1 %
[2022-09-05 19:48] LABS: Hemoglobin 5.9 g/dL (12.2-16.2)
[2022-09-05 20:01] LABS: Albumin 2.5 g/dL (3.4-5.0); Calcium 9.6 mg/dL (8.5-10.1); Potassium 3.1 mmol/L (3.5-5.1)
[2022-09-05 20:03] LABS: BUN/Creatinine Ratio 18.5
[2022-09-05 20:05] LABS: Bilirubin, Total 1.3 mg/dL (0.2-1.0); Total Protein 7.1 g/dL (6.4-8.2)
[2022-09-05 23:08] LABS: Urine Bacteria NONE SEEN /hpf (None Seen); Urine Blood Negative /uL (Negative); Urine Hyaline Cast FEW /lpf (0 - 2); Urine Specific Gravity 1.016 (1.001-1.035); Urine WBC <1 /hpf (0 - 5)
[2022-09-05 23:24] VITALS: BP 109/57
[2022-09-05] MEDS ORDERED: MORPHINE SULFATE INJ 2 MG/ml SYRG IV PRN (23:30)
[2022-09-05] MEDS ORDERED: ACETAMINOPHEN 325 MG TAB PO PRN (23:30)
[2022-09-05] MEDS ORDERED: LORazepam 0.5 MG TAB PO PRN (23:30)
[2022-09-05] MEDS ORDERED: ONDANSETRON HCL 4 MG/2 ML VIAL IV PRN (23:30)
[2022-09-05] MEDS ORDERED: MAALOX PLUS or MAALOX 30 ML PO PRN (23:30)
[2022-09-05] MEDS ORDERED: TEMAZEPAM 15 MG CAP PO PRN (23:30)
[2022-09-05 23:39] VITALS: BP 115/62
[2022-09-06 00:30] VITALS: BP 112/64
[2022-09-06 01:00] VITALS: BP 113/63
[2022-09-06 01:15] VITALS: BP 110/64
[2022-09-06] MEDS: SODIUM CHLORIDE 0.9% 1,000 ML IV SCH ×2 (01:25→16:39)
[2022-09-06 02:15] VITALS: BP 113/63
[2022-09-06 03:38] VITALS: BP 123/68
[2022-09-06 07:41] LABS: Basophils # (auto) 0.1 10 ^3/uL (0-0.2); Basophils % (auto) 0.6 % (0.0-2.0); Eosinophils # (auto) 0.1 10 ^3/uL (0-0.8); Eosinophils % (auto) 0.6 % (0.0-7.0); Hematocrit 25.6 % (36.0-46.0); Hemoglobin 8.6 g/dL (12.2-16.2); Lymphocytes # (auto) 2.1 10 ^3/uL (0.4-5.4); Lymphocytes % (auto) 10.5 % (10.0-50.0); Mean Corpuscular Hemoglobin 30.1 pg (28.0-32.0); Mean Corpuscular Hgb Conc. 33.8 g/dL (32.0-36.0); Mean Corpuscular Volume 89.2 fL (80.0-100.0); Monocytes # (auto) 1.2 10 ^3/uL (0-1.3); Monocytes % (auto) 6.3 % (0.0-12.0); Neutrophils # (auto) 16.3 10 ^3/uL (1.6-8.6); Red Blood Cells 2.87 10^6/uL (4.0-5.20); Red Cell Distribution Width 15.3 % (11.8-14.3); White Blood Cell 19.9 10^3/uL (4.4-10.8)
[2022-09-06 07:59] LABS: BUN/Creatinine Ratio 23.8; Calcium 8.8 mg/dL (8.5-10.1)
[2022-09-06 08:32] LABS: Potassium 2.5 mmol/L (3.5-5.1)
[2022-09-06] MEDS ORDERED: POTASSIUM CHLORIDE 60 MEQ, LIDOCAINE 1% (LOCAL ANESTH.) 6 ML in SODIUM CHL 0.9% 500 ML IV ONE (08:45)
[2022-09-06] MEDS ORDERED: cefTRIAXone 1GM/50ML D5W 50 ML IV ONE (12:00)
[2022-09-07] VITALS (9 sets, daily range): BP systolic 129–141; BP diastolic 67–85
[2022-09-07 06:09] LABS: BUN/Creatinine Ratio 17.5; Calcium 8.7 mg/dL (8.5-10.1); Potassium 4.1 mmol/L (3.5-5.1)
[2022-09-07] MEDS: cefTRIAXone 1GM/50ML D5W 50 ML IV SCH (08:53)
[2022-09-07] MEDS: SODIUM CHLORIDE 0.9% 1,000 ML IV SCH (08:53)
[2022-09-07] MEDS: DOCUSATE SOD 100 MG CAP PO PRN (09:22)
[2022-09-07] MEDS ORDERED: HYDR-4296 PO (16:14)
[2022-09-07] MEDS ORDERED: ALLO100T PO (16:23)
[2022-09-07] MEDS ORDERED: AMLO-489 PO (16:24)
[2022-09-07] MEDS: PANTOPRAZOLE 40 MG/10 ML VIAL INJ IV SCH (21:31)
[2022-09-08] MEDS: SODIUM CHLORIDE 0.9% 1,000 ML IV SCH ×2 (00:50→20:36)
[2022-09-08 05:00] VITALS: BP 141/87
[2022-09-08 06:25] LABS: Basophils # (auto) 0.1 10 ^3/uL (0-0.2); Basophils % (auto) 0.5 % (0.0-2.0); Eosinophils # (auto) 0.1 10 ^3/uL (0-0.8); Eosinophils % (auto) 0.7 % (0.0-7.0); Hemoglobin 8.3 g/dL (12.2-16.2); Monocytes # (auto) 0.8 10 ^3/uL (0-1.3)
[2022-09-08 06:33] LABS: Hematocrit 24.6 % (36.0-46.0); Lymphocytes # (auto) 2.6 10 ^3/uL (0.4-5.4); Lymphocytes % (auto) 16.4 % (10.0-50.0); Mean Corpuscular Hemoglobin 30.1 pg (28.0-32.0); Mean Corpuscular Hgb Conc. 33.8 g/dL (32.0-36.0); Monocytes % (auto) 5.1 % (0.0-12.0); Neutrophils # (auto) 12.2 10 ^3/uL (1.6-8.6); Neutrophils % (auto) 77.3 % (37.0-80.0); Red Blood Cells 2.77 10^6/uL (4.0-5.20); Red Cell Distribution Width 15.7 % (11.8-14.3); White Blood Cell 15.9 10^3/uL (4.4-10.8)
[2022-09-08 06:50] LABS: Albumin 1.9 g/dL (3.4-5.0); BUN/Creatinine Ratio 25.9; Calcium 8.5 mg/dL (8.5-10.1); Total Protein 6.4 g/dL (6.4-8.2)
[2022-09-08 08:00] VITALS: BP 128/83
[2022-09-08 09:00] VITALS: BP 145/92
[2022-09-08] MEDS ORDERED: POTASSIUM CHL 20 Meq TABLET PO ONE (09:45)
[2022-09-08] MEDS: ALLOPURINOL 100 MG TAB PO SCH (10:50)
[2022-09-08] MEDS: cefTRIAXone 1GM/50ML D5W 50 ML IV SCH (10:50)
[2022-09-08] MEDS: PANTOPRAZOLE 40 MG/10 ML VIAL INJ IV SCH ×2 (10:51→21:46)
[2022-09-08] MEDS: HYDROcodone-ACET 5/325MG TAB PO PRN (11:35)
[2022-09-08 12:36] VITALS: BP 139/84
[2022-09-08 17:18] VITALS: BP 128/83
[2022-09-08] MEDS: MUPIROCIN 2% OINT 15gm or 22gm FOR MRSA NARES EACHNOSTRI SCH ×2 (17:23→21:46)
[2022-09-08 22:00] VITALS: BP 132/89
[2022-09-09 05:00] VITALS: BP 148/90
[2022-09-09] MEDS: PANTOPRAZOLE 40 MG/10 ML VIAL INJ IV SCH ×2 (08:58→22:00)
[2022-09-09] MEDS: MUPIROCIN 2% OINT 15gm or 22gm FOR MRSA NARES EACHNOSTRI SCH ×2 (08:59→22:45)
[2022-09-09] MEDS: ALLOPURINOL 100 MG TAB PO SCH (08:59)
[2022-09-09] MEDS: cefTRIAXone 1GM/50ML D5W 50 ML IV SCH (08:59)
[2022-09-09 09:00] VITALS: BP 146/88
[2022-09-09] MEDS ORDERED: POTASSIUM EFFERVESENT TAB 25 MEQ PO ONE (11:45)
[2022-09-09] MEDS: HYDROcodone-ACET 5/325MG TAB PO PRN ×2 (12:16→21:17)
[2022-09-09 13:00] VITALS: BP 146/90
[2022-09-09 16:37] VITALS: BP 137/86
[2022-09-09] MEDS ORDERED: LORazepam 2MG/ML-1ML VIAL IV PRN (17:00)
[2022-09-09] MEDS: POTASSIUM EFFERVESENT TAB 25 MEQ PO SCH (18:35)
[2022-09-09] MEDS: SODIUM CHLORIDE 0.9% 1,000 ML IV SCH (18:55)
[2022-09-09 20:18] LABS: Cholesterol 127 mg/dL (< 200); HDL Cholesterol 35 mg/dL (40-59); LDL Cholesterol 80 mg/dL (< 100); Triglycerides 104 mg/dL (< 150)
[2022-09-09 22:00] VITALS: BP 147/79
[2022-09-09] MEDS ORDERED: ATORVASTATIN 20 MG TAB PO SCH (22:00)
[2022-09-09] MEDS ORDERED: GABAPENTIN 300 MG CAP PO SCH (22:00)
[2022-09-09] MEDS: DOCUSATE SOD 100 MG CAP PO PRN (22:50)
[2022-09-10] MEDS: SODIUM CHLORIDE 0.9% 1,000 ML IV SCH (04:07)
[2022-09-10 05:00] VITALS: BP 146/85
[2022-09-10 09:00] VITALS: BP 146/89
[2022-09-10] MEDS ORDERED: ASPirin 81 mg TAB PO SCH (10:00)
[2022-09-10] MEDS: POTASSIUM EFFERVESENT TAB 25 MEQ PO SCH (10:00)
[2022-09-10 10:37] LABS: BUN/Creatinine Ratio 14.8; Calcium 9.1 mg/dL (8.5-10.1); Potassium 4.1 mmol/L (3.5-5.1)
[2022-09-10] MEDS: cefTRIAXone 1GM/50ML D5W 50 ML IV SCH (10:57)
[2022-09-10] MEDS: PANTOPRAZOLE 40 MG/10 ML VIAL INJ IV SCH (11:03)
[2022-09-10] MEDS: MUPIROCIN 2% OINT 15gm or 22gm FOR MRSA NARES EACHNOSTRI SCH (11:04)
[2022-09-10] MEDS: ALLOPURINOL 100 MG TAB PO SCH (11:04)
[2022-09-10] MEDS: GABAPENTIN 100 MG CAP PO SCH ×2 (11:04→16:49)
[2022-09-10 12:27] VITALS: BP 126/89
[2022-09-10 13:00] VITALS: BP 126/89
[2022-09-10 17:01] VITALS: BP 139/93
[2022-09-14 08:16] LABS: Potassium 2.9 mmol/L (3.5-5.1)
== END 2022-09-10 18:00 | DRG 871 ==
LOC: EDBD 18:31 → ER 18:31 → TELE 23:32 → TELE-WESTW 09-06 23:36
PROVIDERS: ADMIT Hospitalist; ATTEND Family Medicine
PROC: 30233N1 Transfusion of Nonautologous Red Blood Cells into Peripheral Vein, Percutaneous Approach (ICD-10-PCS; principal; 2022-09-05)
DX: A41.9 Sepsis, unspecified organism (principal); E43 Unspecified severe protein-calorie malnutrition; G93.41 Metabolic encephalopathy; K92.1 Melena; N17.9 Acute kidney failure, unspecified; D64.9 Anemia, unspecified; Z20.822 Contact with and (suspected) exposure to COVID-19; E11.9 Type 2 diabetes mellitus without complications; E86.0 Dehydration; E87.6 Hypokalemia; F03.C0 Unspecified dementia, severe, without behavioral disturbance, psychotic disturbance, mood disturbance, and anxiety; H91.90 Unspecified hearing loss, unspecified ear; I10 Essential (primary) hypertension; Z79.82 Long term (current) use of aspirin; Z79.899 Other long term (current) drug therapy; Z82.49 Family history of ischemic heart disease and other diseases of the circulatory system; Z83.3 Family history of diabetes mellitus; Z86.73 Personal history of transient ischemic attack (TIA), and cerebral infarction without residual deficits; Z90.710 Acquired absence of both cervix and uterus; Z68.24 Body mass index [BMI] 24.0-24.9, adult
CPT/HCPCS: 36415; 36430; 70450; 70551; 71045; 80048; 80053; 80061; 81001; 82140; 83880; 84484; 85025; 86850; 86900; 86901; 86920; 87040; 87081; 87426; 93005; 93306; 93886; 95819; 96361; 96365; 96367; 97163; C9113; G0378; J0696; J2001

== ENCOUNTER 2022-09-15 22:09 | Inpatient (IN) | payer MEDICARE ==
[~2022-09-15] VITALS: Ht 167.6 cm; Wt 63.0 kg
[~2022-09-15 22:09] MED LIST changes: +ALLO100T PO; +AMLO-489 PO; +HYDR-4296 PO
[2022-09-15] MEDS ORDERED: SODIUM CHLORIDE 0.9% 1,000 ML IV ONE (23:15)
[2022-09-15 23:55] LABS: Basophils # (auto) 0.1 10 ^3/uL (0-0.2); Basophils % (auto) 0.6 % (0.0-2.0); Eosinophils # (auto) 0.1 10 ^3/uL (0-0.8); Eosinophils % (auto) 1.4 % (0.0-7.0); Hematocrit 20.6 % (36.0-46.0); Lymphocytes # (auto) 2.7 10 ^3/uL (0.4-5.4); Mean Corpuscular Hgb Conc. 33.3 g/dL (32.0-36.0); Mean Corpuscular Volume 90.3 fL (80.0-100.0); Monocytes # (auto) 0.9 10 ^3/uL (0-1.3); Monocytes % (auto) 8.2 % (0.0-12.0); Neutrophils # (auto) 6.7 10 ^3/uL (1.6-8.6); Neutrophils % (auto) 63.8 % (37.0-80.0); Red Blood Cells 2.28 10^6/uL (4.0-5.20); Red Cell Distribution Width 15.3 % (11.8-14.3); White Blood Cell 10.5 10^3/uL (4.4-10.8)
[2022-09-16] VITALS (12 sets, daily range): BP systolic 141–161; BP diastolic 78–98
[2022-09-16] LABS: INR 1.08 (0.9-1.15); Partial Thromboplastin Time 29.3 sec (24.6-33.4)
[2022-09-16 00:03] LABS: Hemoglobin 6.9 g/dL (12.2-16.2)
[2022-09-16 00:19] LABS: BUN/Creatinine Ratio 15.7; Potassium 3.3 mmol/L (3.5-5.1)
[2022-09-16 00:20] LABS: Albumin 2.5 g/dL (3.4-5.0); Bilirubin, Total 0.5 mg/dL (0.2-1.0); Calcium 9.1 mg/dL (8.5-10.1); Total Protein 6.3 g/dL (6.4-8.2)
[2022-09-16 02:56] LABS: Urine Bacteria NONE SEEN /hpf (None Seen); Urine Blood TRACE /uL (Negative); Urine Specific Gravity 1.008 (1.001-1.035); Urine WBC 5 /hpf (0 - 5)
[2022-09-16] MEDS ORDERED: POTASSIUM CHL 20 Meq TABLET PO ONE (03:15)
[2022-09-16] MEDS ORDERED: TEMAZEPAM 15 MG CAP PO PRN (03:15)
[2022-09-16] MEDS ORDERED: ONDANSETRON HCL 4 MG/2 ML VIAL IV PRN (03:15)
[2022-09-16] MEDS ORDERED: cefTRIAXone 1GM/50ML D5W 50 ML IV SCH (03:30)
[2022-09-16] MEDS: hydrALAZINE HCL 25 MG TAB PO SCH ×2 (10:00→20:48)
[2022-09-16] MEDS ORDERED: HCTZ 25 MG TAB PO SCH (10:00)
[2022-09-16] MEDS: ACETAMINOPHEN 325 MG TAB PO PRN ×2 (10:01→16:49)
[2022-09-16 11:23] LABS: Hematocrit 31.5 % (36.0-46.0); Hemoglobin 10.8 g/dL (12.2-16.2)
[2022-09-16] MEDS: ATORVASTATIN 20 MG TAB PO SCH (20:51)
[2022-09-17] VITALS (7 sets, daily range): BP systolic 116–142; BP diastolic 67–86
[2022-09-17 07:12] LABS: Basophils # (auto) 0.1 10 ^3/uL (0-0.2); Basophils % (auto) 0.7 % (0.0-2.0); Eosinophils # (auto) 0.1 10 ^3/uL (0-0.8); Hematocrit 29.7 % (36.0-46.0); Lymphocytes # (auto) 2.2 10 ^3/uL (0.4-5.4); Lymphocytes % (auto) 18.1 % (10.0-50.0); Mean Corpuscular Hemoglobin 29.7 pg (28.0-32.0); Mean Corpuscular Hgb Conc. 33.7 g/dL (32.0-36.0); Mean Corpuscular Volume 88.1 fL (80.0-100.0); Monocytes # (auto) 0.9 10 ^3/uL (0-1.3); Neutrophils % (auto) 73.2 % (37.0-80.0); Red Blood Cells 3.37 10^6/uL (4.0-5.20); Red Cell Distribution Width 15.1 % (11.8-14.3); White Blood Cell 12.3 10^3/uL (4.4-10.8)
[2022-09-17 07:23] LABS: Albumin 2.7 g/dL (3.4-5.0); Bilirubin, Total 1.2 mg/dL (0.2-1.0); Calcium 9.2 mg/dL (8.5-10.1); Total Protein 6.5 g/dL (6.4-8.2)
[2022-09-17 07:31] LABS: Potassium 2.7 mmol/L (3.5-5.1)
[2022-09-17] MEDS: POTASSIUM EFFERVESENT TAB 25 MEQ GT SCH (10:24)
[2022-09-17] MEDS: hydrALAZINE HCL 25 MG TAB PO SCH ×2 (10:24→21:54)
[2022-09-17] MEDS: ACETAMINOPHEN 325 MG TAB PO PRN (21:48)
[2022-09-17] MEDS: ATORVASTATIN 20 MG TAB PO SCH (21:55)
[2022-09-18 05:00] VITALS: BP 146/89
[2022-09-18 06:03] LABS: Basophils # (auto) 0.1 10 ^3/uL (0-0.2); Basophils % (auto) 0.6 % (0.0-2.0); Eosinophils # (auto) 0.1 10 ^3/uL (0-0.8); Eosinophils % (auto) 0.8 % (0.0-7.0); Hematocrit 31.2 % (36.0-46.0); Hemoglobin 10.5 g/dL (12.2-16.2); Lymphocytes # (auto) 2.4 10 ^3/uL (0.4-5.4); Lymphocytes % (auto) 19.2 % (10.0-50.0); Mean Corpuscular Hemoglobin 29.8 pg (28.0-32.0); Mean Corpuscular Hgb Conc. 33.6 g/dL (32.0-36.0); Mean Corpuscular Volume 88.7 fL (80.0-100.0); Monocytes # (auto) 0.8 10 ^3/uL (0-1.3); Monocytes % (auto) 6.7 % (0.0-12.0); Neutrophils # (auto) 9.1 10 ^3/uL (1.6-8.6); Neutrophils % (auto) 72.7 % (37.0-80.0); Red Blood Cells 3.51 10^6/uL (4.0-5.20); Red Cell Distribution Width 15.2 % (11.8-14.3); White Blood Cell 12.6 10^3/uL (4.4-10.8)
[2022-09-18 06:16] LABS: Albumin 2.8 g/dL (3.4-5.0); Calcium 9.5 mg/dL (8.5-10.1)
[2022-09-18 06:20] LABS: BUN/Creatinine Ratio 20.5; Bilirubin, Total 1.2 mg/dL (0.2-1.0); Total Protein 6.6 g/dL (6.4-8.2)
[2022-09-18] MEDS ORDERED: LIDOCAINE VISCOUS 2% 15ML UD ONE (08:19)
[2022-09-18] MEDS ORDERED: MIDAZOLAM HCL 2MG/2ML 2ml VIAL (1mg/ml) ONE (08:20)
[2022-09-18] MEDS ORDERED: diphenhdrAMINE HCL 50 MG/1 ML VL ONE (08:20)
[2022-09-18] MEDS ORDERED: fentaNYL CITRATE 100 MCG/2 ML VL ONE (08:20)
[2022-09-18 09:00] VITALS: BP 147/90
[2022-09-18 09:50] VITALS: BP 154/91
[2022-09-18] MEDS ORDERED: PANTOPRAZOLE 40 MG TAB PO SCH (10:00)
[2022-09-18] MEDS: POTASSIUM EFFERVESENT TAB 25 MEQ GT SCH (10:25)
[2022-09-18] MEDS: SUCRALFATE 1 GM/10 ML ORAL SUSP PO SCH ×2 (10:25→16:57)
[2022-09-18] MEDS: hydrALAZINE HCL 25 MG TAB PO SCH (10:26)
[2022-09-18] MEDS ORDERED: PANT40T PO (12:41)
[2022-09-18] MEDS ORDERED: SUCR1SUS10 PO (12:41)
[2022-09-18 13:00] VITALS: BP 146/96
[2022-09-18 17:00] VITALS: BP 130/81
[2022-09-18] MEDS: ACETAMINOPHEN 325 MG TAB PO PRN (17:33)
== END 2022-09-18 19:45 | DRG 378 ==
LOC: EDBD 22:09 → ER 22:10 → OVERFLOW 09-16 03:03 → CENTRAL 09-16 20:52 → EAST 09-16 20:57
PROVIDERS: ADMIT Nurse Practitioner; ATTEND Student in an Organized Health Care Education/Training Program
PROC: 30233N1 Transfusion of Nonautologous Red Blood Cells into Peripheral Vein, Percutaneous Approach (ICD-10-PCS; principal; 2022-09-16)
PROC: 0DB98ZX Excision of Duodenum, Via Natural or Artificial Opening Endoscopic, Diagnostic (ICD-10-PCS; 2022-09-18)
PROC: 0DB68ZX Excision of Stomach, Via Natural or Artificial Opening Endoscopic, Diagnostic (ICD-10-PCS; 2022-09-18)
DX: K25.4 Chronic or unspecified gastric ulcer with hemorrhage (principal); D62 Acute posthemorrhagic anemia; N39.0 Urinary tract infection, site not specified; E44.0 Moderate protein-calorie malnutrition; K29.71 Gastritis, unspecified, with bleeding; E87.6 Hypokalemia; N18.9 Chronic kidney disease, unspecified; Z20.822 Contact with and (suspected) exposure to COVID-19; F03.90 Unspecified dementia, unspecified severity, without behavioral disturbance, psychotic disturbance, mood disturbance, and anxiety; R74.01 Elevation of levels of liver transaminase levels; E11.22 Type 2 diabetes mellitus with diabetic chronic kidney disease; H91.90 Unspecified hearing loss, unspecified ear; I12.9 Hypertensive chronic kidney disease with stage 1 through stage 4 chronic kidney disease, or unspecified chronic kidney disease; Z86.73 Personal history of transient ischemic attack (TIA), and cerebral infarction without residual deficits; Z82.49 Family history of ischemic heart disease and other diseases of the circulatory system; Z90.710 Acquired absence of both cervix and uterus; Z68.22 Body mass index [BMI] 22.0-22.9, adult
CPT/HCPCS: 36415; 36430; 43239; 71045; 80053; 81001; 82270; 82607; 83880; 84484; 85014; 85018; 85025; 85610; 85730; 86850; 86900; 86901; 86920; 87081; 87426; 93005; 96360; G0378; J0696; J2250